=== PATIENT | female | born 1980 | race Caucasian/White ===

== ENCOUNTER → 2019-01-07 | Emergency (ER) | payer BC, OTHER ==
[~2019-01-07] MED LIST: Ketorolac INJ* 30 MG/ML 1 ML VIAL IV PUSH ONE; Morphine 4 MG/ML VIAL (1 ml) 4 MG/ML VIAL IV ONE; NS 0.9% 1000 ML** 1,000 ML IV ONE; Ondansetron INJ* 2 MG/ML VIAL IV ONE; Tamsulosin CAP* 0.4 MG PO ONE
--- NOTE | 2019-01-07 03:57 | ED ---
Abdominal Pain/Female - HPI Summary HPI Summary: Pt is a 38 y/o female who presents to the ED c/o abdominal pain. At 1:00 this morning pt suddenly began to have LLQ pain that radiates to her left flank. Pt also c/o N/V/D and chills, but denies any fever or dysuria. Pain is rated a 10/ 10 in severity and is described as sharp. She denies any hx of kidney stones. PSHx tubal ligation, . She currently is menstruating. - History of Current Complaint Chief Complaint: EDFlankPain Stated Complaint: BACK PAIN PER PT Hx Obtained From: Patient Onset/Duration: Sudden Onset, Lasting Hours - 1:00 this morning, Still Present Timing: Constant Severity Currently: Severe Pain Intensity: 10 Pain Scale Used: 0-10 Numeric Location: Discrete At: LLQ Radiates: Yes Radiates to: Flank - L Character: Sharp Associated Signs and Symptoms: Positive: Nausea, Vomiting, Diarrhea. Negative: Fever Allergies/Adverse Reactions: Allergies Allergy/AdvReac Type Severity Reaction Status Date / Time amoxicillin [From Augmentin] Allergy Hives Verified 01/07/19 03:54 clavulanic acid Allergy Hives Verified 01/07/19 03:54 [From Augmentin] PMH/Surg Hx/FS Hx/Imm Hx History: Denies: Hx Kidney Stones Sensory History: Denies: Hx Contacts or Glasses, Hx Hearing Aid Opthamlomology History: Denies: Hx Contacts or Glasses - Surgical History Surgery Procedure, Year, and Place[id number] [place] Hx Anesthesia Reactions: No Infectious Disease History: No Infectious Disease History: Denies: Traveled Outside the [place] in Last 30 Days - Family History Known Family History: Positive: Cardiac Disease, Hypertension, Diabetes - Social History Alcohol Use: None Hx Substance Use: No Substance Use Type: Reports: None Hx Tobacco Use: No Smoking Status (MU): Never Smoked Tobacco Review of Systems Positive: Chills. Negative: Fever Positive: Abdominal Pain - LLQ, Vomiting, Diarrhea, Nausea Positive: flank pain - left. Negative: dysuria All Other Systems Reviewed And Are Negative: Yes Physical Exam - Summary Physical Exam Summary: Appearance: well appearing, mild pain distress Skin: warm, dry, reflects adequate perfusion Head/face: normal Eyes: EOMI, LUCIA ENT: mucous membranes moist Neck: supple, non-tender Respiratory: CTA, breath sounds present Cardiovascular: RRR, pulses symmetrical Abdomen: non-tender, soft, no CVA tenderness Bowel Sounds: present Musculoskeletal: normal, strength/ROM intact Neuro: normal, sensory motor intact, A&Ox3 Triage Information Reviewed: Yes Vital Signs On Initial Exam: Initial Vitals Temp Pulse Resp BP Pulse Ox 97.6 F 97 20 136/105 100 01/07/19 03:35 01/07/19 03:35 01/07/19 03:35 01/07/19 03:35 01/07/19 03:35 Vital Signs Reviewed: Yes Diagnostics - Vital Signs Vital Signs Temp Pulse Resp BP Pulse Ox 01/07/19 03:35 97.6 F 97 20 136/105 100 - Laboratory Result Diagrams: 01/07/19 04:15 01/07/19 04:15 Lab Statement: Any lab studies that have been ordered have been reviewed, and results considered in the medical decision making process. - CT CT A/P CT Interpretation Completed By: Radiologist Summary of CT Findings: 1. Mild left hydroureteronephrosis. 2. Possible distal left ureteral calculus. 3. Appendicolith. 4. Enlarged uterus. 5. Status post tubal ligation procedure. ED physician reviewed radiology report. Re-Evaluation - Re-Evaluation First Eval Re-Evaluation Time: 05:20 Change: Improved Comment: Pt is feeling better. Abdominal Pain Fem Course/Dx - Course Course Of Treatment: Patient presents with abrupt onset of colicky pain in the left flank radiating to her left lower abdomen. CT scan consistent with possible distal kidney stone and mild left hydronephrosis. Patient has known history of fibroids and a large uterus on CT. She is given Toradol and fluids and cannot significantly better quickly. She had some residual pain which is treated with morphine and Flomax. She is discharged in good condition to follow up with her primary care physician. - Diagnoses Differential Diagnosis: Positive: Ovarian Cyst, Pancreatitis, Pelvic Inflammatory Disease, Renal Colic, Urinary Tract Infection Provider Diagnoses: Ureterolithiasis, Renal colic Discharge - Sign-Out/Discharge Documenting (check all that apply): Patient Departure - Discharge Patient Received Moderate/Deep Sedation with Procedure: No - Discharge Plan Condition: Improved Disposition: HOME Prescriptions: Hydrocodone/Acetaminophen [[place] 5-325 Tablet] 1 each PO TID PRN #5 tablet MDD 3 PRN Reason: Severe Pain Naproxen [Naproxen 500 mg tab] 500 mg PO BID #10 tablet Ondansetron ODT TAB* [Zofran 4 MG Odt TAB*] 4 mg PO Q8H PRN #12 tab.odt PRN Reason: Nausea Patient Education Materials: Renal Colic (ED) Forms: *Work Release Referrals: Gómez Cabrera MD [Primary Care Provider] - Additional Instructions: Drink plenty of fluids. Diet as tolerated. A calcium oxalate diet may help to prevent kidney stones. Call your doctor today to schedule prompt follow-up. Return with fever, uncontrolled pain, vomiting, worse or other concerns. - Billing Disposition and Condition Condition: IMPROVED Disposition: Home - Attestation Statements Document Initiated by Concha: Yes Documenting Scribe: Abi Jesus Provider For Whom Concha is Documenting (Include Credential): Johnny Carrillo MD Scribe Attestation: Abi Nino scribed for Johnny Carrillo MD on 01/07/19 at 0611. Scribe Documentation Reviewed: Yes Provider Attestation: The documentation as recorded by the Abi sen accurately reflects the service I personally performed and the decisions made by , Johnny Carrillo MD Status of Scribe Document: Viewed
[2019-01-07 04:14] LABS: Urine Appearance Cloudy; Urine Bacteria 1+ (Absent); Urine Bilirubin Negative (Negative); Urine Blood 3+ (Negative); Urine Color Yellow; Urine Glucose Negative (Negative); Urine Ketones Negative (Negative); Urine Nitrite Negative (Negative); Urine Protein Negative (Negative); Urine Red Blood Cell Absent (Absent); Urine Squamous Epithelial Cell Present (Absent); Urine Urobilinogen Negative (Negative); Urine White Blood Cell 1+(6-10/hpf) (Absent)
[2019-01-07 04:28] LABS: Hematocrit 34 % (35-47); Hemoglobin 10.3 g/dL (12.0-16.0); Mean Corpuscular HGB Conc 31 g/dL (31-36); Mean Corpuscular Hemoglobin 23 pg (27-31); Mean Corpuscular Volume 73 fL (80-97); Mean Platelet Volume 7.9 fL (7.4-10.4); Platelet Count 211 10^3/uL (150-450); Red Blood Count 4.59 10^6 /uL (3.70-4.87); Red Cell Distribution Width 15 % (10.5-15); White Blood Count 6.8 10^3/uL (3.5-10.8)
[2019-01-07 04:45] LABS: ALT 9 U/L (7-52); AST 18 U/L (13-39); Albumin 4.3 g/dL (3.2-5.2); Albumin/Globulin Ratio 1.7 (1-3); Alkaline Phosphatase 71 U/L (34-104); Anion Gap 8 mmol/L (2-11); BUN/Creatinine Ratio 19.8 (8-20); Blood Urea Nitrogen 20 mg/dL (6-24); C Reactive Protein < 1.00 mg/L (<8.01); CO2 Carbon Dioxide 24 mmol/L (22-32); Calcium 9.3 mg/dL (8.6-10.3); Chloride 107 mmol/L (101-111); EGFR African American 74.2 (>60); EGFR Non-African American 61.3 (>60); Globulin 2.6 g/dL (2-4); Glucose 117 mg/dL (70-100); Potassium 3.9 mmol/L (3.5-5.0); Sodium 139 mmol/L (135-145); Total Protein 6.9 g/dL (6.4-8.9)
[2019-01-07 04:52] LABS: HCG Pregnancy < 0.60 mIU/mL
[2019-01-07 05:08] LABS: ABS Eosinophils 0.1 10^3/ul (0-0.6); ABS Lymphocytes 1.6 10^3/ul (1.0-4.8); ABS Monocytes 0.4 10^3/ul (0-0.8); ABS Neutrophils 4.7 10^3/ul (1.5-7.7); Eosinophil % 0.9 %; Lymphocyte % 23.8 %; Nucleated Red Blood Cells % 0.1
[2019-01-07 06:35] VITALS: BP 103/78
--- NOTE | 2019-01-09 12:12 | PN ---
Progress Note - Progress Note Date of Service: 01/07/19 Note: Pt. seen on 01/07 for urolithiasis. Preliminary urine culture growing a small amount of staph epidermidis. Final urine culture was not reported as apparently it was contaminated and did not appear to be growing any further, per Alex in micro. Attempted to call pt. today at 1210 to see how she was feeling without answer, message left to return call. Suspect contamination.
--- NOTE | 2019-01-09 17:41 | PN ---
Progress Note - Progress Note Date of Service: 01/09/19 Note: patient called back and discussed that not having any uti symptoms so will not treat at this time.
== END | disposition home or self-care (01) ==
LOC: ED 03:34
DX: N20.1 Calculus of ureter (principal); N23 Unspecified renal colic; N13.30 Unspecified hydronephrosis; N85.2 Hypertrophy of uterus; Z88.3 Allergy status to other anti-infective agents; Z98.51 Tubal ligation status
CPT/HCPCS: 36415; 74176; 80053; 81003; 81015; 83605; 83690; 84702; 85025; 86140; 87077; 87086; 87186; 96374; 96375; 99283; J1885; J2270; J2405

== ENCOUNTER 2019-06-10 05:54 | Observation (INO) | payer BC ==
[~2019-06-10 05:54] MED LIST changes: +Buffered Lidocaine 1% SYRIN* 1 ML/SYRINGE INTRADERM ONE; -Ketorolac INJ* 30 MG/ML 1 ML VIAL IV PUSH ONE; -Morphine 4 MG/ML VIAL (1 ml) 4 MG/ML VIAL IV ONE; -NS 0.9% 1000 ML** 1,000 ML IV ONE; -Ondansetron INJ* 2 MG/ML VIAL IV ONE; -Tamsulosin CAP* 0.4 MG PO ONE
[2019-06-10] MEDS ORDERED: Lactated Ringers 1000 ML Bag* 1,000 ML IV SCH ×2 (06:00→12:00)
[2019-06-10] MEDS ORDERED: Famotidine IV* 10 MG/ML 2 ML (20 mg) IV ONE (06:00)
[2019-06-10] MEDS ORDERED: Famotidine IV* 10 MG/ML 2 ML (20 mg) ONE (06:07)
[2019-06-10] MEDS ORDERED: Clindamycin 900 MG/D5W BAG(*) 900 MG/50 ML BAG IVPB ONE (07:27)
[2019-06-10] MEDS ORDERED: Bupivacaine 0.25% EPI 200,000* 30 ML SDV ONE (07:30)
[2019-06-10] MEDS ORDERED: Rocuronium* 10 MG/ML VIAL ONE (07:33)
[2019-06-10] MEDS ORDERED: Midazolam* 1 MG/ML 5 ML VIAL (5 MG) ONE (07:34)
[2019-06-10] MEDS ORDERED: fentaNYL* 50 MCG/ML 2 ML VIAL (100 MCG VIAL) ONE (07:45)
[2019-06-10] MEDS ORDERED: NS 0.9% IVPB ONE (08:00)
[2019-06-10] MEDS ORDERED: GENTAMICIN ADULT IVPB ONE (08:00)
[2019-06-10] MEDS ORDERED: Dexamethasone IV* 4 MG/ML 1 ML (4 MG) ONE (08:13)
[2019-06-10] MEDS ORDERED: Ondansetron INJ* 2 MG/ML VIAL ONE (08:13)
[2019-06-10] MEDS ORDERED: Ketorolac INJ* 30 MG/ML 1 ML VIAL ONE (08:13)
[2019-06-10] MEDS ORDERED: Lidocaine 2% PF * 5 ML VIAL ONE (08:13)
[2019-06-10] MEDS ORDERED: Propofol* 10 MG/ML 20 ML BTL ONE (08:13)
[2019-06-10] MEDS ORDERED: DiMENhydriNATE IV* 50 MG/ML VIAL ONE (08:13)
[2019-06-10] MEDS ORDERED: DiMENhydriNATE IV* 50 MG/ML VIAL IV PUSH PRN (08:37)
[2019-06-10] MEDS ORDERED: Naloxone* 0.4 MG/ML 1 ML VIAL IV PRN (08:37)
[2019-06-10] MEDS ORDERED: Acetaminophen IV 1GM/100ML * 100 ML ONE (08:52)
[2019-06-10] MEDS ORDERED: HYDROmorphone INJ1* 1 MG/ML SYRINGE ONE ×2 (09:23→11:03)
[2019-06-10] MEDS: HYDROmorphone INJ1* 1 MG/ML SYRINGE IV PRN ×5 (11:07→11:43)
[2019-06-10] MEDS: oxyCODONE TAB* 5 MG TAB PO PRN ×2 (11:44→11:46)
[2019-06-10] MEDS ORDERED: oxyCODONE TAB* 5 MG TAB ONE (11:44)
[2019-06-10] MEDS: oxyCODONE/Acetamin 5/325 MG* TAB PO PRN ×2 (16:59→21:22)
[2019-06-10] MEDS: Ibuprofen TAB* 600 MG PO PRN ×2 (17:00→23:49)
[2019-06-11] MEDS: oxyCODONE/Acetamin 5/325 MG* TAB PO PRN ×2 (02:00→09:28)
[2019-06-11 05:39] LABS: Hematocrit 35 % (35-47); Hemoglobin 11.6 g/dL (12.0-16.0); Mean Corpuscular HGB Conc 33 g/dL (31-36); Mean Corpuscular Hemoglobin 28 pg (27-31); Mean Corpuscular Volume 84 fL (80-97); Mean Platelet Volume 8.1 fL (7.4-10.4); Platelet Count 161 10^3/uL (150-450); Red Blood Count 4.22 10^6 /uL (3.70-4.87); Red Cell Distribution Width 19 % (10-15); White Blood Count 8.9 10^3/uL (3.5-10.8)
[2019-06-11] MEDS: Ibuprofen TAB* 600 MG PO PRN (05:58)
[2019-06-11 06:07] LABS: ABS Lymphocytes 2.3 10^3/ul (1.0-4.8); ABS Monocytes 0.7 10^3/ul (0-0.8); ABS Neutrophils 5.9 10^3/ul (1.5-7.7); Eosinophil % 0.4 %; Lymphocyte % 25.8 %
[2019-06-11 07:38] VITALS: BP 104/69
--- NOTE | 2019-06-11 09:13 | SURGPN ---
Subjective - Introduction -: Patient is a 38 y/o lady with abnormal uterine bleeding, dysmenorrhea and uterine fibroids. Admitted on: [admitted on 06/10/19 ] Patient's surgical date: 06/10/19 Procedure completed: Laparoscopic supracervical hysterectomy Patient has no complaints, is tolerating a regular diet, passing flatus, ambulating and voiding without difficulty. pain isd well controlled with PO meds. Objective: Vital Signs Temp Pulse Resp BP Pulse Ox 99.3 F 68 18 104/69 98 06/11/19 07:37 06/11/19 07:37 06/11/19 08:00 06/11/19 07:37 06/11/19 07:37 Laboratory Last Values WBC 8.9 10^3/uL (3.5-10.8) 06/11/19 05:00 RBC 4.22 10^6 /uL (3.70-4.87) 06/11/19 05:00 Hgb 11.6 g/dL (12.0-16.0) L 06/11/19 05:00 Hct 35 % (35-47) 06/11/19 05:00 MCV 84 fL (80-97) 06/11/19 05:00 MCH 28 pg (27-31) 06/11/19 05:00 MCHC 33 g/dL (31-36) 06/11/19 05:00 RDW 19 % (10-15) H 06/11/19 05:00 Plt Count 161 10^3/uL (150-450) 06/11/19 05:00 MPV 8.1 fL (7.4-10.4) 06/11/19 05:00 Neut % (Auto) 66.0 % 06/11/19 05:00 Lymph % (Auto) 25.8 % 06/11/19 05:00 Rabun % (Auto) 7.4 % 06/11/19 05:00 Eos % (Auto) 0.4 % 06/11/19 05:00 Baso % (Auto) 0.4 % 06/11/19 05:00 Absolute Neuts (auto) 5.9 10^3/ul (1.5-7.7) 06/11/19 05:00 Absolute Lymphs (auto) 2.3 10^3/ul (1.0-4.8) 06/11/19 05:00 Absolute Monos (auto) 0.7 10^3/ul (0-0.8) 06/11/19 05:00 Absolute Eos (auto) 0.0 10^3/ul (0-0.6) 06/11/19 05:00 Absolute Basos (auto) 0.0 10^3/ul (0-0.2) 06/11/19 05:00 Absolute Nucleated RBC 0.0 10^3/ul 06/11/19 05:00 Nucleated RBC % 0.0 06/11/19 05:00 Physical exam: Lungs CTA b/l CV RRR Abdomen soft, not distende nor tender, normal bowel sounds. Incisions ( umbilical and RUQ) are clean, dry, intact with no erythema or induration. I/P Post op day 1, recovering well. Plan discharge home today, she has a f/u appt in 1 week in my office. Typed discharge instructions reviewed with patient. - Medications -: Active Medications Generic Name Dose Route Start Last Admin Trade Name Freq PRN Reason Stop Dose Admin Lactated Ringer's 1,000 mls @ 125 mls/hr 06/10/19 12:00 Lactated Ringers 1000 Ml Bag* IV PER RATE MARLA Ibuprofen 600 mg 06/10/19 11:14 06/11/19 05:58 Motrin Tab* PO 600 mg Q6H PRN Administration PAIN - MILD Oxycodone/Acetaminophen 2 tab 06/10/19 11:14 06/11/19 02:00 Percocet 5/325 Tab* PO 2 tab Q4H PRN Administration PAIN - MODERATE TO SEVERE Objective - Intake and Output -: Intake & Output 06/09/19 06/10/19 06/11/19 06/12/19 06:59 06:59 06:59 06:59 Intake Total 2480 Output Total 2350 Balance 130 Weight 120 lb 3.2 oz Intake: IV Fluids 1400 LR 1400 Oral 1080 Output: Urine 2350 Other: # Bowel Movements 0 ADLs: Meal Record Start: 06/10/19 12: 23 Freq: Status: Active Protocol: Created 06/10/19 12:23 System (Rec: 06/10/19 12:23 System [id number]) Document 06/10/19 14:59 [id number] (Rec: 06/10/19 14:59 [id number] [facility]-M14) Intake and Output Start: 06/10/19 12: 23 Freq: DAILY@0600,1400,2200 Status: Active Protocol: Created 06/10/19 12:23 System (Rec: 06/10/19 12:23 System [id number]) Document 06/10/19 13:45 [id number] (Rec: 06/10/19 13:45 [id number] U-C08) Document 06/10/19 13:45 [id number] (Rec: 06/10/19 13:45 [id number] [id number]) Document 06/10/19 18:19 [id number] (Rec: 06/10/19 18:19 [id number] [facility]-M14) Document 06/10/19 19:38 [id number] (Rec: 06/10/19 19:38 [id number] U-M16) Document 06/10/19 20:46 [id number] (Rec: 06/10/19 20:46 [id number] U-M17) Document 06/10/19 22:19 [id number] (Rec: 06/10/19 22:19 [id number] U-M17) Document 06/11/19 05:57 [id number] (Rec: 06/11/19 05:58 [id number] [facility]-M16)
--- NOTE | 2019-06-22 02:18 | OP ---
DATE OF OPERATION: 06/10/19 - ROOM #335 DATE OF : 80 SURGEON: Dragan Castañeda MD [employer]ARM BOSS: Suleman Zuniga DO ANESTHESIA: General anesthetic with endotracheal intubation. PRE-OP DIAGNOSES: 1. Uterine fibroids. 2. Menorrhagia. POST-OP DIAGNOSES: 1. Uterine fibroids. 2. Menorrhagia. OPERATIVE PROCEDURE: Laparoscopic supracervical hysterectomy. ESTIMATED BLOOD LOSS: None. SPECIMEN SENT TO PATHOLOGY: Morcellated uterus. IV FLUIDS: The patient received 1300 cc of IV crystalloid fluid. URINE OUTPUT: 700 cc of clear urine. FINDINGS: Laparoscopically, the patient was noted to have normal tubes and ovaries bilaterally with evidence of a prior tubal ligation. The uterus was noted to be top normal size and was globular and slightly enlarged. There was normal bowel, bladder, and normal liver edge, and there were no complications. The patient was taken to the operating room where she was identified. She was placed on the operating table where a general anesthetic with endotracheal intubation was obtained without difficulty. She was then placed in the dorsal lithotomy position, prepped and draped in normal sterile fashion. Attention was then brought to the patient's peritoneum. The bladder was catheterized with Lr catheter and drained of clear urine. A side-view speculum was inserted into the patient's vagina. The cervix was identified. It was grasped with single-tooth tenaculum and through the cervix, a ClearView uterine manipulator was introduced. The uterine manipulator balloon was insufflated with 3 cc of sterile water. The single-tooth tenaculum was removed from the cervix and the speculum was then removed from the patient's vagina. Attention was then brought on to the patient's abdomen where an infraumbilical incision was made with a knife and carried through to the underlying layer of fascia. The fascia was then grasped with Miguel clamps and dissected and cut vertically. The incision was then extended about 3 cm vertically. Entry into the peritoneum was then confirmed using a Yesica clamp. Through this incision, we introduced a single-site Gel site trocar and trocar was then introduced through the Gel site. The patient's abdomen was then insufflated with CO2 gas. A 5-mm scope with 30-degree angle was introduced through the single-site trocar and survey of the patient's pelvic anatomy revealed findings as noted above. At this point, a second trocar was introduced into the patient's right upper quadrant under direct visualization without any complications. We then proceeded with the case. The patient's uterus was mobilized. The fallopian tubes were grasped bilaterally with LigaSure, cauterized, and transected. The same was done for the uteroovarian ligaments bilaterally and they were grasped with LigaSure, cauterized, and transected. The round ligaments were then grasped bilaterally, cauterized, and transected. A window was then made anteriorly with broad ligament using the LigaSure device towards bladder reflection using cautery and sharp dissection. The uterus was pushed upwards. The bladder flap was then created using LigaSure. The bladder was then mobilized away from the cervicouterine junction. The uterine arteries were then identified bilaterally. They were then grasped with LigaSure device. The lower uterine segment was then cauterized. Then, the uterine arteries were then further dissected, grasped, and cauterized laterally at the cervicouterine junction and transected. At this point, we noted blanching of the uterus. We introduced then a SupraLoop through the right upper quadrant trocar. The SupraLoop was then wrapped around the uterocervical junction. The manipulator inside the uterus was removed vaginally. At this point, the SupraLoop was then charged at 110 pure-cut setting. It was then turned on and the uterus was then decapitated from the cervix. The cervical stump was noted to be completely hemostatic. We then proceeded to remove the SupraLoop from the patient's abdomen. The trocars from single-site Gel trocar were removed through the umbilical incision. We then introduced Endobag where the uterus was then placed inside. The Endobag was then brought up to the incision and then proceeded to grasp the uterus with a clamp and the uterus was then morcellated using sharp dissection with curved Olson scissors. The uterus was morcellated into one single piece, completely removed and sent to Pathology. The Endobag was then removed from the patient's abdomen and was noted to be intact. At this point, we then replaced the single- site Gel trocar system. We took a survey of the patient's surgical pedicles. They were noted to be completely hemostatic. The pelvic surgical site was then irrigated with saline. The saline was then suctioned. There was no bleeding noted. At this point, we removed the right upper quadrant trocar under direct visualization. We then removed all the trocars and the single-site Gel trocar device was then also removed. The umbilical incision fascia was closed with 0 Polysorb suture in a running fashion. The umbilical skin was closed with 4-0 Monocryl in a subcuticular stitch and the incision in the right upper quadrant was closed with 4-0 Monocryl subcuticular. At this point, the Lr catheter was also removed. The patient tolerated the procedure well. Sponge, lap, and needle counts were correct x2. She was then transferred to recovery room area in stable condition. [id number]/[facility] #: [id number] DARA
== END 2019-06-11 10:20 | disposition home or self-care (01) ==
LOC: OR 05:54 → SSU 12:09
PROVIDERS: ADMIT Obstetrics & Gynecology; ATTEND Obstetrics & Gynecology
DX: D25.1 Intramural leiomyoma of uterus (principal); N94.5 Secondary dysmenorrhea; N92.0 Excessive and frequent menstruation with regular cycle
CPT/HCPCS: 36415; 85025; 88307; A9270-GY; G0378; J1100; J1170; J1240; J1580; J1885; J2250; J2405; J2704; J3010